=== PATIENT | male | born 1990 | race Caucasian/White ===

== ENCOUNTER 2017-04-12 13:32 | Emergency (ER) | payer BC ==
[~2017-04-12] VITALS: Ht 182.9 cm; Wt 79.5 kg
[2017-04-12 13:35] VITALS: BP 155/84; PULSE 80; TEMP 98.8
== END 2017-04-12 14:54 | disposition home or self-care (01) ==
LOC: COL.ER 13:32
DX: R51 Headache (principal); R22.0 Localized swelling, mass and lump, head; X58.XXXD Exposure to other specified factors, subsequent encounter

== ENCOUNTER 2018-01-06 17:21 | Emergency (ER) | payer BC ==
[~2018-01-06] VITALS: Ht 180.3 cm; Wt 79.5 kg
[2018-01-06 17:33] VITALS: BP 150/103; TEMP 98.3
[2018-01-06] MEDS ORDERED: VYVANSE50 MG PO (17:35)
[2018-01-06 18:26] LABS: BASO # 0.1 (0.0-0.2); BASO % 0.6 % (0.0-2.0); EOS # 0.2 (0.0-0.7); EOS % 1.6 % (0-4.0); GRAN # 6.6 (1.4-6.5); HEMATOCRIT 44.2 % (42.0-52.0); HEMOGLOBIN 15.3 g/dl (13.5-18.0); LYMPH # 2.5 (1.2-3.4); LYMPH % 25.2 % (20.0-51.0); MEAN CELL VOLUME 94 fl (80.0-100.0); MEAN CORPUSCULAR HEMOGLOBIN 33 pg (27.0-31.0); MEAN CORPUSCULAR HGB CONC 35 g/dl (33.0-37.0); MEAN PLATELET VOLUME 9.3 fl (7.4-10.4); MONO # 0.6 (0.1-0.6); MONO % 6.3 % (1.7-9.3); PLATELET COUNT 314 K/mm3 (130-400); RED BLOOD COUNT 4.71 M/mm3 (4.20-5.60); REDCELL DISTRIBUTION WIDTH-CV 12.3 % (11.5-14.5)
[2018-01-06 19:10] VITALS: PULSE 89
== END 2018-01-06 19:10 | disposition home or self-care (01) ==
LOC: COL.ER 17:21
PROVIDERS: Family Medicine
DX: M79.661 Pain in right lower leg (principal)

== ENCOUNTER 2019-08-03 09:48 | Emergency (ER) | payer OTHER ==
[~2019-08-03] VITALS: Ht 182.9 cm; Wt 72.7 kg
[~2019-08-03 09:48] MED LIST: VYVANSE50 MG PO
[2019-08-03 09:53] VITALS: TEMP 97.2
[2019-08-03 10:18] LABS: COLLECTION METHOD CLEAN CATCH
[2019-08-03 11:12] LABS: PH 9 (5-8); SQUAMOUS EPITHELIAL 0-2 /hpf; URINE APPEARANCE Clear; URINE BACTERIA None Seen /hpf; URINE BILIRUBIN Negative (NEGATIVE); URINE BLOOD Negative (NEGATIVE); URINE COLOR Yellow; URINE GLUCOSE Negative (NEGATIVE); URINE KETONE Negative (NEGATIVE); URINE LEUKOCYTE ESTERASE Negative (NEGATIVE); URINE NITRATE Negative (NEGATIVE); URINE PROTEIN(semi-quant) 2+ (NEGATIVE); URINE UROBILINOGEN Negative (NEGATIVE)
[2019-08-03 11:54] VITALS: BP 148/83; PULSE 70
== END 2019-08-03 11:54 | disposition home or self-care (01) ==
LOC: COL.ER 09:48
PROVIDERS: Nurse Practitioner
DX: R10.9 Unspecified abdominal pain (principal); R40.2412 Glasgow coma scale score 13-15, at arrival to emergency department; W17.89XA Other fall from one level to another, initial encounter